=== PATIENT | female | born 1935 | race Caucasian/White ===

== ENCOUNTER 2020-09-06 05:47 | Inpatient (IN) | payer OTHER ==
[~2020-09-06] VITALS: Ht 167.6 cm; Wt 64.0 kg
[2020-09-06 06:21] LABS: HEMOGLOBIN 11.9 gm/dl (12.3-15.3); RED BLOOD COUNT 3.93 M/UL (4.00-5.10); WHITE BLOOD COUNT 12.8 K/UL (4.5-11.0)
[2020-09-06] MEDS ORDERED: SERTRALINE HCL50 MG PO (16:09)
[2020-09-06] MEDS ORDERED: LOSARTAN-HCTZ1 EACH PO (16:10)
[2020-09-06] MEDS ORDERED: AMLODIPINE BESYL5 MG PO (16:10)
[2020-09-06] MEDS ORDERED: CARVEDILOL6.25 MG PO (16:10)
[2020-09-06] MEDS ORDERED: FAMOTIDINE40 MG PO (16:11)
[2020-09-06] MEDS ORDERED: ASPIRIN 325MG325 MG PO (16:15)
[2020-09-07 02:49] LABS: HEMOGLOBIN 11.1 gm/dl (12.3-15.3); RED BLOOD COUNT 3.74 M/UL (4.00-5.10); WHITE BLOOD COUNT 13.8 K/UL (4.5-11.0)
[2020-09-07] MEDS ORDERED: PROBIOTIC1 EAC1 PO (10:28)
[2020-09-07] MEDS ORDERED: PEPCID40 MG PO (10:47)
[2020-09-08 03:40] LABS: HEMOGLOBIN 9.7 gm/dl (12.3-15.3); WHITE BLOOD COUNT 11.3 K/UL (4.5-11.0)
[2020-09-08 03:44] LABS: RED BLOOD COUNT 3.23 M/UL (4.00-5.10)
[2020-09-09 05:54] LABS: HEMOGLOBIN 9.5 gm/dl (12.3-15.3); RED BLOOD COUNT 3.14 M/UL (4.00-5.10); WHITE BLOOD COUNT 9.2 K/UL (4.5-11.0)
[2020-09-09] MEDS ORDERED: ELIQUIS 2.5 MG2.5 MG PO (17:40)
[2020-09-09] MEDS ORDERED: SENNA LAX8.6 MG PO (17:40)
[2020-09-09] MEDS ORDERED: ATORVASTATIN CA20 MG PO (17:40)
[2020-09-09] MEDS ORDERED: LEVOFLOXACIN500 MG PO (17:40)
[2020-09-09] MEDS ORDERED: HYDROCODON-ACE1 EAC2 PO (17:42)
[2020-09-09] MEDS ORDERED: ASPIRIN EC81 MG PO (17:44)
--- NOTE | 2020-09-10 11:07 | NUR ---
09/10/20 1056 REPORT CALLED TO ZACK DUBON RN AT [facility] 09/10/20 1105 JOVANA LAZO NOTIFIED OF NEED FOR AMBULANCE TO TAKE PATIENT TO [facility]
== END 2020-09-10 11:56 | DRG 481 ==
LOC: ER1 05:47 → CDU 06:51 → M/S 06:51
PROVIDERS: Emergency Medicine; Family Medicine; Orthopaedic Surgery; ADMIT Internal Medicine
PROC: 0QS734Z Reposition Left Upper Femur with Internal Fixation Device, Percutaneous Approach (ICD-10-PCS; principal; 2020-09-07 15:00)
DX: S72.012A Unspecified intracapsular fracture of left femur, initial encounter for closed fracture (principal); N30.00 Acute cystitis without hematuria; W18.30XA Fall on same level, unspecified, initial encounter; I25.10 Atherosclerotic heart disease of native coronary artery without angina pectoris; R01.1 Cardiac murmur, unspecified; Z20.822 Contact with and (suspected) exposure to COVID-19; I35.0 Nonrheumatic aortic (valve) stenosis; K59.00 Constipation, unspecified; I45.10 Unspecified right bundle-branch block; J44.9 Chronic obstructive pulmonary disease, unspecified; K46.9 Unspecified abdominal hernia without obstruction or gangrene; D72.829 Elevated white blood cell count, unspecified; Z88.0 Allergy status to penicillin; Y92.009 Unspecified place in unspecified non-institutional (private) residence as the place of occurrence of the external cause; Z79.899 Other long term (current) drug therapy; Z87.891 Personal history of nicotine dependence; Z95.5 Presence of coronary angioplasty implant and graft; Z79.82 Long term (current) use of aspirin; I25.2 Old myocardial infarction; Z82.3 Family history of stroke; Z85.038 Personal history of other malignant neoplasm of large intestine; Z79.01 Long term (current) use of anticoagulants
CPT/HCPCS: ECHO; 36415; 51702; 71045; 73030; 73502; 74018; 76000; 80048; 80053; 81001; 85025; 85027; 86850; 86900; 86901; 93005; 93306; 94640; 94760; 96365; 96366; 96375; 96376; 97110; 97110-GP-CQ; 97116-GP-CQ; 97162; 97165; 97530-GP-CQ; 99285; C1713; J0690; J1650; J1956; J2001; J2270; J2405; J2704; J2710; J3010; J7120; U0002

== ENCOUNTER 2020-09-28 17:18 | Inpatient (IN) | payer OTHER ==
[~2020-09-28] VITALS: Ht 165.1 cm; Wt 63.5 kg
[~2020-09-28 17:18] MED LIST: AMLODIPINE BESYL5 MG PO; ASPIRIN 325MG325 MG PO; ASPIRIN EC81 MG PO; ATORVASTATIN CA20 MG PO; CARVEDILOL6.25 MG PO; ELIQUIS 2.5 MG2.5 MG PO; FAMOTIDINE40 MG PO; HYDROCODON-ACE1 EAC2 PO; LEVOFLOXACIN500 MG PO; LOSARTAN-HCTZ1 EACH PO; PEPCID40 MG PO; PROBIOTIC1 EAC1 PO; SENNA LAX8.6 MG PO; SERTRALINE HCL50 MG PO
[2020-09-28 19:47] LABS: HEMOGLOBIN 9.9 gm/dl (12.3-15.3); RED BLOOD COUNT 3.35 M/UL (4.00-5.10)
[2020-09-28] MEDS ORDERED: HYDROCODON-ACE1 EAC2 PO (22:59)
[2020-09-28] MEDS ORDERED: SENNA-S 8.6-501 EACH PO (23:00)
[2020-09-30 03:13] LABS: HEMOGLOBIN 9.1 gm/dl (12.3-15.3); RED BLOOD COUNT 3.04 M/UL (4.00-5.10); WHITE BLOOD COUNT 8.5 K/UL (4.5-11.0)
[2020-09-30 03:34] LABS: BUN/CREATININE RATIO 23 (0-10)
[2020-09-30 10:26] LABS: HEMOGLOBIN 9.7 gm/dl (12.3-15.3); RED BLOOD COUNT 3.25 M/UL (4.00-5.10)
[2020-09-30 10:28] LABS: WHITE BLOOD COUNT 14.4 K/UL (4.5-11.0)
[2020-09-30 10:47] LABS: BUN/CREATININE RATIO 18 (0-10)
[2020-10-01 03:04] LABS: HEMOGLOBIN 8.3 gm/dl (12.3-15.3)
[2020-10-01 03:11] LABS: RED BLOOD COUNT 2.81 M/UL (4.00-5.10); WHITE BLOOD COUNT 7.7 K/UL (4.5-11.0)
[2020-10-01 03:13] LABS: BUN/CREATININE RATIO 20 (0-10)
[2020-10-03 03:41] LABS: HEMOGLOBIN 7.4 gm/dl (12.3-15.3); WHITE BLOOD COUNT 5.8 K/UL (4.5-11.0)
[2020-10-03 03:53] LABS: RED BLOOD COUNT 2.48 M/UL (4.00-5.10)
[2020-10-03 04:14] LABS: BUN/CREATININE RATIO 19 (0-10)
[2020-10-04 12:43] LABS: HEMOGLOBIN 8.9 gm/dl (12.3-15.3)
[2020-10-04 12:46] LABS: RED BLOOD COUNT 2.99 M/UL (4.00-5.10); WHITE BLOOD COUNT 8.5 K/UL (4.5-11.0)
[2020-10-05 02:48] LABS: HEMOGLOBIN 8.1 gm/dl (12.3-15.3); RED BLOOD COUNT 2.71 M/UL (4.00-5.10); WHITE BLOOD COUNT 7.2 K/UL (4.5-11.0)
[2020-10-05] MEDS ORDERED: FERROUS GLUCON324 M1 PO (12:39)
[2020-10-05] MEDS ORDERED: TYLENOL 8 HOUR650 MG PO (12:39)
[2020-10-05] MEDS ORDERED: THERAGRAN M TAB1 EA PO (12:39)
[2020-10-05] MEDS ORDERED: POLYETHYLENE GL17 GM PO (12:39)
[2020-10-05] MEDS ORDERED: HYDROCODON-ACE1 EAC4 PO (12:39)
== END 2020-10-05 18:20 | DRG 480 ==
LOC: ER1 17:18 → CDU 22:48 → M/S 22:48
PROVIDERS: Internal Medicine; Orthopaedic Surgery; Physician Assistant; ADMIT Internal Medicine
PROC: 0QS604Z Reposition Right Upper Femur with Internal Fixation Device, Open Approach (ICD-10-PCS; principal; 2020-09-30 09:45)
DX: S72.001A Fracture of unspecified part of neck of right femur, initial encounter for closed fracture (principal); G92 Toxic encephalopathy; D62 Acute posthemorrhagic anemia; Z96.7 Presence of other bone and tendon implants; Z20.822 Contact with and (suspected) exposure to COVID-19; I25.10 Atherosclerotic heart disease of native coronary artery without angina pectoris; F03.90 Unspecified dementia, unspecified severity, without behavioral disturbance, psychotic disturbance, mood disturbance, and anxiety; I10 Essential (primary) hypertension; J44.9 Chronic obstructive pulmonary disease, unspecified; W18.39XA Other fall on same level, initial encounter; I35.0 Nonrheumatic aortic (valve) stenosis; Z85.038 Personal history of other malignant neoplasm of large intestine; Z95.5 Presence of coronary angioplasty implant and graft; Z88.0 Allergy status to penicillin; Z82.3 Family history of stroke; Z90.49 Acquired absence of other specified parts of digestive tract; Z87.891 Personal history of nicotine dependence
CPT/HCPCS: 36415; 51702; 70450; 71045; 72125; 72128; 72131; 72170; 72192; 73080; 73502; 76000; 80048; 80053; 81001; 82550; 82553; 83735; 83874; 84484; 85025; 85027; 85610; 85730; 87086; 93005; 94664; 94760; 97110; 97110-GP-CQ; 97116-GP-CQ; 97161; 97166; 97530; 97530-GP-CQ; 99284; C1713; J0690; J1100; J1650; J2001; J2270; J2370; J2405; J2704; J2710; J3010; J7120; U0002

== ENCOUNTER → 2021-04-20 | Outpatient (CLI) | payer OTHER ==
[~2021-04-20] MED LIST changes: +ALDACTONE 25MG25 MG PO; +AMIODARONE HCL200 MG PO; +BUDESONIDE0.5 MG/2 M NEB; +FERROUS GLUCON324 M1 PO; +FERROUS SULFAT324 MG PO; +FUROSEMIDE20 MG PO; +HYDROCODON-ACE1 EAC4 PO; +IPRAT-ALBUT 0.5-3 ML NEB; +ISOSORBIDE MONO30 MG PO; +LOPRESSOR 25 MG25 MG PO; +POLYETHYLENE GL17 GM PO; +PROVENTIL HFA6.7 GM INH; +SENNA-S 8.6-501 EACH PO; +THERAGRAN M TAB1 EA PO; +TYLENOL 8 HOUR650 MG PO
[2021-04-20 17:20] LABS: HEMOGLOBIN 11.2 gm/dl (12.3-15.3); RED BLOOD COUNT 3.61 M/UL (4.00-5.10); WHITE BLOOD COUNT 19.1 K/UL (4.5-11.0)
== END ==
LOC: LAB 16:45
PROVIDERS: Nurse Practitioner Family
DX: R06.02 Shortness of breath (principal)
CPT/HCPCS: 36415; 80053; 85025

== ENCOUNTER 2021-04-21 15:58 | Inpatient (IN) | payer OTHER ==
[~2021-04-21] VITALS: Ht 167.6 cm; Wt 59.0 kg
[~2021-04-21 15:58] MED LIST changes: -ALDACTONE 25MG25 MG PO; -AMIODARONE HCL200 MG PO; -BUDESONIDE0.5 MG/2 M NEB; -FERROUS SULFAT324 MG PO; -FUROSEMIDE20 MG PO; -IPRAT-ALBUT 0.5-3 ML NEB; -ISOSORBIDE MONO30 MG PO; -LOPRESSOR 25 MG25 MG PO; -PROVENTIL HFA6.7 GM INH
[2021-04-21 17:08] LABS: RED BLOOD COUNT 3.97 M/UL (4.00-5.10); WHITE BLOOD COUNT 18.2 K/UL (4.5-11.0)
[2021-04-21] MEDS ORDERED: FERROUS SULFAT324 MG PO (21:14)
[2021-04-21] MEDS ORDERED: CARVEDILOL6.25 MG PO (21:15)
[2021-04-21] MEDS ORDERED: PROVENTIL HFA6.7 GM INH (21:15)
[2021-04-22 03:45] LABS: HEMOGLOBIN 9.9 gm/dl (12.3-15.3); RED BLOOD COUNT 3.32 M/UL (4.00-5.10); WHITE BLOOD COUNT 13.1 K/UL (4.5-11.0)
[2021-04-23 02:55] LABS: HEMOGLOBIN 9.9 gm/dl (12.3-15.3); RED BLOOD COUNT 3.33 M/UL (4.00-5.10)
[2021-04-23 02:57] LABS: WHITE BLOOD COUNT 9.6 K/UL (4.5-11.0)
[2021-04-24 02:48] LABS: HEMOGLOBIN 10.2 gm/dl (12.3-15.3); RED BLOOD COUNT 3.38 M/UL (4.00-5.10); WHITE BLOOD COUNT 9.7 K/UL (4.5-11.0)
[2021-04-25 03:52] LABS: HEMOGLOBIN 10.6 gm/dl (12.3-15.3); RED BLOOD COUNT 3.58 M/UL (4.00-5.10); WHITE BLOOD COUNT 8.9 K/UL (4.5-11.0)
[2021-04-26 03:29] LABS: HEMOGLOBIN 11.5 gm/dl (12.3-15.3); RED BLOOD COUNT 3.87 M/UL (4.00-5.10); WHITE BLOOD COUNT 10.4 K/UL (4.5-11.0)
[2021-04-26 13:11] LABS: ORGANISM ID Not indicated. (.); SPECIMEN SOURCE Urine (.); STREPTOCOCCUS PNEUMONIAE AG Negative (Negative)
[2021-04-27 03:34] LABS: HEMOGLOBIN 11.9 gm/dl (12.3-15.3); RED BLOOD COUNT 3.98 M/UL (4.00-5.10); WHITE BLOOD COUNT 9.6 K/UL (4.5-11.0)
[2021-04-28 02:36] LABS: HEMOGLOBIN 11.5 gm/dl (12.3-15.3); RED BLOOD COUNT 3.84 M/UL (4.00-5.10); WHITE BLOOD COUNT 10.2 K/UL (4.5-11.0)
[2021-04-29] MEDS ORDERED: LOPRESSOR 25 MG25 MG PO (09:44)
[2021-04-29] MEDS ORDERED: ASPIRIN EC81 MG PO (09:44)
[2021-04-29] MEDS ORDERED: ELIQUIS 2.5 MG2.5 MG PO (09:44)
[2021-04-29] MEDS ORDERED: ALDACTONE 25MG25 MG PO (09:44)
[2021-04-29] MEDS ORDERED: FUROSEMIDE20 MG PO (09:44)
[2021-04-29] MEDS ORDERED: ISOSORBIDE MONO30 MG PO (09:44)
[2021-04-29] MEDS ORDERED: AMIODARONE HCL200 MG PO (09:44)
[2021-04-29] MEDS ORDERED: BUDESONIDE0.5 MG/2 M NEB (09:44)
[2021-04-29] MEDS ORDERED: IPRAT-ALBUT 0.5-3 ML NEB (09:44)
== END 2021-04-29 12:34 | disposition home health service (06) | DRG 280 ==
LOC: ER1 15:58 → PROG CARE 18:40 → CDU 18:40 → PROG CARE 20:14
PROVIDERS: Internal Medicine; Physician Assistant; ADMIT Internal Medicine
PROC: 5A2204Z Restoration of Cardiac Rhythm, Single (ICD-10-PCS; principal; 2021-04-28)
DX: I13.0 Hypertensive heart and chronic kidney disease with heart failure and stage 1 through stage 4 chronic kidney disease, or unspecified chronic kidney disease (principal); J18.9 Pneumonia, unspecified organism; Z20.822 Contact with and (suspected) exposure to COVID-19; I21.A1 Myocardial infarction type 2; I50.23 Acute on chronic systolic (congestive) heart failure; N17.9 Acute kidney failure, unspecified; I48.19 Other persistent atrial fibrillation; J98.11 Atelectasis; J44.0 Chronic obstructive pulmonary disease with (acute) lower respiratory infection; J96.11 Chronic respiratory failure with hypoxia; I48.92 Unspecified atrial flutter; I25.10 Atherosclerotic heart disease of native coronary artery without angina pectoris; J44.9 Chronic obstructive pulmonary disease, unspecified; E78.5 Hyperlipidemia, unspecified; I25.5 Ischemic cardiomyopathy; Z96.642 Presence of left artificial hip joint; I45.10 Unspecified right bundle-branch block; I45.19 Other right bundle-branch block; N18.30 Chronic kidney disease, stage 3 unspecified; I07.2 Rheumatic tricuspid stenosis and insufficiency; L89.312 Pressure ulcer of right buttock, stage 2; I27.20 Pulmonary hypertension, unspecified; Z88.0 Allergy status to penicillin; Z88.8 Allergy status to other drugs, medicaments and biological substances; Z85.038 Personal history of other malignant neoplasm of large intestine; Z90.89 Acquired absence of other organs; Z82.3 Family history of stroke; Z87.891 Personal history of nicotine dependence; Z79.82 Long term (current) use of aspirin; Z79.899 Other long term (current) drug therapy
CPT/HCPCS: ECHO; 36415; 71045; 71046; 71250; 78452; 80048; 80053; 80061; 82550; 82553; 83036; 83540; 83550; 83605; 83735; 83874; 83880; 84100; 84439; 84443; 84484; 85025; 85027; 85610; 85652; 85730; 86140; 87040; 87086; 87278; 87899; 93005; 93306; 93308; 94640; 94664; 94760; 97110-GP-CQ; 97116; 97116-GP-CQ; 97161; 97165; 97530; 99285; A9502; J0696; J1160; J1200; J1644; J1940; J2185; J2250; J2270; J2785; J7030; U0002

== ENCOUNTER 2021-06-28 12:58 | Emergency (ER) | payer OTHER ==
[~2021-06-28 12:58] MED LIST changes: +ALDACTONE 25MG25 MG PO; +AMIODARONE HCL200 MG PO; +BUDESONIDE0.5 MG/2 M NEB; +FERROUS SULFAT324 MG PO; +FUROSEMIDE20 MG PO; +IPRAT-ALBUT 0.5-3 ML NEB; +ISOSORBIDE MONO30 MG PO; +LOPRESSOR 25 MG25 MG PO; +PROVENTIL HFA6.7 GM INH
[2021-06-28 14:35] LABS: HEMOGLOBIN 9.5 gm/dl (12.3-15.3); RED BLOOD COUNT 3.22 M/UL (4.00-5.10); WHITE BLOOD COUNT 18.4 K/UL (4.5-11.0)
[2021-06-28 14:58] LABS: BUN/CREATININE RATIO 24 (0-10)
[2021-06-28] MEDS ORDERED: PREDNISONE20 MG PO (17:25)
[2021-06-28] MEDS ORDERED: ZITHROMAX250 MG PO (17:25)
[2021-06-28] MEDS ORDERED: OMNICEF 300 MG300 MG PO (17:25)
== END 2021-06-28 17:56 | disposition home or self-care (01) ==
LOC: ER1 12:58
PROVIDERS: Physician Assistant
DX: J44.0 Chronic obstructive pulmonary disease with (acute) lower respiratory infection (principal); J18.9 Pneumonia, unspecified organism; I48.91 Unspecified atrial fibrillation; Z20.822 Contact with and (suspected) exposure to COVID-19; I10 Essential (primary) hypertension; Z79.01 Long term (current) use of anticoagulants; Z88.0 Allergy status to penicillin
CPT/HCPCS: 71045; 80053; 82550; 82553; 83874; 84484; 85025; 96374; 99285; J0696; U0002

== ENCOUNTER → 2021-09-01 | Outpatient (CLI) | payer OTHER ==
[~2021-09-01] MED LIST changes: +OMNICEF 300 MG300 MG PO; +PREDNISONE20 MG PO; +ZITHROMAX250 MG PO
== END ==
LOC: KOH-I 12:05
DX: I50.43 Acute on chronic combined systolic (congestive) and diastolic (congestive) heart failure (principal)
CPT/HCPCS: 71046

== ENCOUNTER → 2021-09-09 | Outpatient (CLI) | payer OTHER | LOC: HEART 5 09:59 | DX: J44.9 Chronic obstructive pulmonary disease, unspecified (principal) | CPT/HCPCS: 94060; 94729 ==

== ENCOUNTER → 2021-09-13 | Outpatient (CLI) | payer OTHER ==
[~2021-09-13] MED LIST changes: +MIRALAX17 GM PO; +NITROGLYCERIN4.9 GM SL; +PROAIR HFA8.5 GM INH; +STOOL SOFTENER100 M1 PO; +SYMBICORT 16010.2 GM INH
[2021-09-13 10:41] LABS: RED BLOOD COUNT 3.69 M/UL (4.00-5.10); WHITE BLOOD COUNT 7.4 K/UL (4.5-11.0)
== END ==
LOC: LAB 10:18
PROVIDERS: Internal Medicine Cardiovascular Disease
DX: R94.39 Abnormal result of other cardiovascular function study (principal); I20.8 Other forms of angina pectoris; R06.02 Shortness of breath; I35.0 Nonrheumatic aortic (valve) stenosis
CPT/HCPCS: 36415; 80048; 85025

== ENCOUNTER 2022-01-12 10:26 | Emergency (ER) | payer OTHER ==
[~2022-01-12 10:26] MED LIST changes: +CLOPIDOGREL75 MG PO; +ZETIA10 MG PO
[2022-01-12 12:38] LABS: RED BLOOD COUNT 2.02 M/UL (4.00-5.10); WHITE BLOOD COUNT 7.8 K/UL (4.5-11.0)
[2022-01-12 13:07] LABS: HEMOGLOBIN 6.3 gm/dl (12.3-15.3)
[2022-01-12] MEDS ORDERED: XARELTO15 MG PO (17:06)
== END 2022-01-13 00:30 | disposition short-term general hospital (02) ==
LOC: ER1 10:26
PROVIDERS: Physician Assistant Medical
DX: U07.1 COVID-19 (principal); K92.2 Gastrointestinal hemorrhage, unspecified; D64.9 Anemia, unspecified; I48.91 Unspecified atrial fibrillation; I25.2 Old myocardial infarction; I10 Essential (primary) hypertension; Z88.0 Allergy status to penicillin
CPT/HCPCS: 36430; 71045; 80053; 81001; 82272; 82550; 82553; 84484; 85025; 86850; 86900; 86901; 86920; 93005; 99285; P9016; U0002

== ENCOUNTER → 2022-03-02 | Outpatient (CLI) | payer OTHER ==
[~2022-03-02] MED LIST changes: +XARELTO15 MG PO
== END ==
LOC: KOH-I 15:26
DX: N17.9 Acute kidney failure, unspecified (principal); N28.9 Disorder of kidney and ureter, unspecified
CPT/HCPCS: 76775